=== PATIENT | female | born 1980 | race Hispanic/Latino ===

== ENCOUNTER 2016-05-12 11:46 | Emergency (ER) | payer OTHER ==
--- NOTE | 2016-05-12 16:23 | EDDOCDS ---
Physician Documentation [facility] Name: Eliz Stahl Age: 35 yrs Sex: Female : 1980 Arrival Date: 05/12/2016 Time: 11:46 Bed PR Private MD: Sarthak An R Disposition: 05/12/16 16:17 Discharged to Home/Self Care. Impression: Other ovarian cysts, Abdominal and pelvic pain. - Condition is Stable. - Discharge Instructions: Pelvic Pain, Female, Bnst-[id number], Ovarian Cyst, [id number]-[id number]. - Prescriptions for Macrobid 100 mg Oral Capsule - take 100 milligram by ORAL route every 12 hours for 10 days; 20 capsule. Diclofenac Sodium 75 mg Oral Tablet, Delayed Release (E.C.) - take 1 tablet by ORAL route 2 times per day; 30 tablet. - Medication Reconciliation, Local Pharmacy Hours form. - Follow up: Suzie Villeda, OB; When: Call to arrange an appointment; Reason: Further diagnostic work-up, Recheck today's complaints, Continuance of care. - Problem is new. - Symptoms are unchanged. Historical: - Allergies: no known allergies; - Home Meds: 1. Singulair 10 mg Oral tab 1 tab once daily 2. Zyrtec 10 mg Oral tab 1 tab once daily 3. Patanol 0.1 % Opht drop 1 drop 2 times per day 4. albuterol sulfate 90 mcg/actuation Inhl HFAA 2 puffs every 6 hours as needed - PMHx: Seasonal Allergies; - PSHx: Tonsillectomy (1999); - Social history: Smoking status: Patient states former smoker of tobacco. No barriers to communication noted, The patient speaks fluent Faroese, Speaks appropriately for age. - Family history: Not pertinent. - : The pt / caregiver states he / she is not on anticoagulants. Home medication list is obtained from the patient. - Exposure Risk Screening:: None identified. 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 5 in. (165.10 cm) (R); Pain 4/10; 16:15 BP 122 / 75; Pulse 100; Resp 16; Temp 97.1; Pulse Ox 100% ; Pain 4/10; cmb 11:49 Body Mass Index 22.46 (61.23 kg, 165.10 cm) gr2 MDM: 14:25 Urine Dip ordered. btw 14:25 UCG by Nursing ordered. btw 14:26 Urine Culture Ordered. EDMS 14:49 -US Pelvic Non-Ob Complete Ordered. EDMS 14:50 DUPLEX SCAN LIMITED (DOPPLER)+US Ordered. EDMS 14:51 Financial registration complete. lg 15:02 Transvaginal NON- US Ordered. EDMS 15:04 [facility] [place] was scanned into [employer] and attached to record. Point of Care Testing: Urine : 14:46 hCG Reading: Negative; Control Reading: Positive; ttb Urine Dip: 14:46 pH: 1.01; ; Specific [place]: 5; Ketones: Negative; Glucose: Negative; Protein: Trace; ttb Leukocytes: Positive (+); Nitrite: Negative ; Blood: Moderate (++); Bilirubin: Negative ; Urobilinogen: Normal Ranges: Signatures: Dispatcher [employer] Cary Paz RN Moon Torres mcp, Juan Alberto Reg lg Peyman Wright RN RN mlb1 Jackson Mosqueda PA PA btw Conner, Teresa RN RN ttb The chart was reviewed and I authenticate all verbal orders and agree with the evaluation and treatment provided.Attachments: 15:04 [facility] Payment Agreement lg MTDD
--- NOTE | 2016-05-12 16:23 | EDDOCDS ---
Nurse's Notes [facility] Name: Eliz Stahl Age: 35 yrs Sex: Female : 1980 Arrival Date: 05/12/2016 Time: 11:46 Bed PR Private MD: Sarthak An R Diagnosis: Other ovarian cysts;Abdominal and pelvic pain Presentation: 05/12 11:53 Presenting complaint: Patient states: Lower abdominal pain yesterday tenderness today mlb1 pain improved slight fever last night. Risk factors: the patient reports no vaginal bleeding. Adult Sepsis Screening: The patient does not have new or worsening altered mentation. Patient's respiratory rate is less than 22. Systolic blood pressure is greater than 100. Patient has a qSOFA score of 0- Negative Sepsis Screen. Suicide/Homicide risk assessment- the patient denies having any suicidal and/or homicidal ideations and does not present with any other emotional, behavioral or mental health complaints. Status: The patient is a dependent. Transition of care: patient was not received from another setting of care. 11:53 Acuity: MARICARMEN Level 3 mlb1 11:53 Method Of Arrival: Walkin/Carried/Asstd mlb1 Triage Assessment: 11:56 General: Appears in no apparent distress, Behavior is cooperative. Pain: Location: mlb1 right lower quadrant and left lower quadrant Pain currently is 0 out of 10 on a pain scale. At worst was 4 out of 10 on a pain scale. GI: Denies diarrhea, vomiting. 11:56 Pt Declines HIV testing. 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 Singulair 10 mg Oral tab 1 tab once daily 2. Zyrtec 10 mg Oral tab 1 tab once daily 3. Patanol 0.1 % Opht drop 1 drop 2 times per day 4. albuterol sulfate 90 mcg/actuation Inhl HFAA 2 puffs every 6 hours as needed - PMHx: Seasonal Allergies; - PSHx: Tonsillectomy (1999); - Social history: Smoking status: Patient states former smoker of tobacco. No barriers to communication noted, The patient speaks fluent Serbian, Speaks appropriately for age. - Family history: Not pertinent. - : The pt / caregiver states he / she is not on anticoagulants. Home medication list is obtained from the patient. - Exposure Risk Screening:: None identified. Screenin:47 Screening information is obtained from the patient. Fall risk: No risks identified. ttb Assistance ADL's: requires no assistance with activities of daily living. Abuse/DV Screen: The patient / caregiver reports he/she is: not in a situation that causes fear, pain or injury. Nutritional screening: No deficits noted. Advance Directives: Currently, there is no health care proxy. home support is adequate. Assessment: 14:47 General: Appears uncomfortable, well nourished, well groomed, Behavior is appropriate ttb for age, cooperative, pleasant. Pain: Location: lower abd. Neurological: Level of Consciousness is awake, alert. Cardiovascular: Chest pain is denied. Respiratory: No deficits noted. Airway is patent Denies cough, shortness of breath. GI: Abdomen is non- distended. : Denies burning with urination. Derm: Skin is normal. 16:22 General: Appears uncomfortable, Behavior is cooperative. Pain: Location: left lower mcp quadrant and right lower quadrant Pain currently is 4 out of 10 on a pain scale. Neurological: No deficits noted. Respiratory: Airway is patent Respiratory effort is even, unlabored. GI: Bowel sounds present X 4 quads. Abd is soft X 4 quads. Derm: Skin is pink, warm & dry. Vital Signs: 11:49 BP 116 / 70; Pulse 110; Resp 18 S; Temp 98.5(O); Pulse Ox 100% on R/A; Weight 61.23 kg gr2 (R); Height 5 ft. 5 in. (165.10 cm) (R); Pain 4/10; 16:15 BP 122 / 75; Pulse 100; Resp 16; Temp 97.1; Pulse Ox 100% ; Pain 4/10; cmb 11:49 Body Mass Index 22.46 (61.23 kg, 165.10 cm) gr2 Vitals: 11:49 Log In Time: May 12, 2016 at 11:49. gr2 ED Course: 11:47 Patient visited by Flaco Carver. gr2 11:47 Patient moved to Waiting gr2 11:49 Sarthak An is Private Physician. gr2 11:51 Patient visited by Flaco Carver. gr2 11:51 Patient moved to Pre RCE gr2 11:53 Patient visited by Peyman Wright RN. mlb1 11:54 Triage Initiated mlb1 11:57 Patient visited by Peyman Wright RN. mlb1 13:55 Patient moved to Triage 2 mcp 14:19 Jackson Mosqueda PA is PHCP. btw 14:19 Brianna Bernstein MD is Attending Physician. btw 14:19 Patient visited by Jackson Mosqueda PA. btw 14:33 Patient moved to TR1 mcp 14:34 Patient moved to Triage 2 mcp 14:47 Patient visited by Maggie Chin RN. ttb 14:47 The patient / caregiver is instructed regarding the plan of care and ED course. Patient ttb has correct armband on for positive identification. 14:47 Urine collected. Clean catch specimen. ttb 14:49 Patient visited by Maggie Chin RN. ttb 14:49 Patient moved to TR1 ttb 15:03 Patient name changed from Eliz\S\\S\Maribeth\S\ to Eliz\S\ \S\Maribeth. EDMS 15:03 Patient moved to Ultrasound hgl 15:04 [facility] Payment Agreement was scanned into [employer] and attached to record. lg 15:34 Patient moved to TR1 hgl 16:07 Patient moved to PR1 / 25 cmb 16:15 Patient visited by Emily Celeste. cmb 16:16 Suzie Villeda OB is Referral Physician. btw 16:22 No IV's were initiated during this patient's visit. No procedures done that require mcp assistance. Point of Care Testing: Urine : 14:46 hCG Reading: Negative; Control Reading: Positive; ttb Urine Dip: 14:46 pH: 1.01; ; Specific [place]: 5; Ketones: Negative; Glucose: Negative; Protein: Trace; ttb Leukocytes: Positive (+); Nitrite: Negative ; Blood: Moderate (++); Bilirubin: Negative ; Urobilinogen: Normal Ranges: Order Results: There are currently no results for this order. Outcome: 14:47 Ultrasound Study completed. ttb 16:17 Discharge ordered by Provider. btw 16:22 Discharge Assessment: patient administered narcotics - no. The following High Risk [facility] Discharge criteria are identified: None. Discharged to home ambulatory. Condition: stable. Discharge instructions given to patient, Instructed on discharge instructions, follow up and referral plans. medication usage, Demonstrated understanding of instructions, medications, Pt was receptive of discharge instructions/ teaching. Prescriptions given X 2. Property sent home with patient. 16:23 Patient left the ED. [facility] Signatures: Dispatcher [employer] EDMS Cary Lovett RN RN Moon May, Juan Alberto Reg lg Peyman Wright RN RN mlb1 Jackson Mosqueda PA PA btw Ly, Brice josephl Emily Celeste Teresa, RN RN ttb Flaco Carver gr2 MTDD
--- NOTE | 2016-05-12 16:59 | REP ---
PELVIC ULTRASOUND: Real-time sonographic evaluation of the pelvis performed utilizing transabdominal and endovaginal technique. The bladder measures 2.4 x 2.7 x 4.6 cm. The uterus measures 5.7 x 4.1 x 5.6 cm. Endometrial thickness is 7 mm. There is no endometrial fluid collection. The uterus is retroverted. The right ovary measures 4.2 x 1.7 x 2.9 cm and contains a dominant follicle 2.1 x 1.0 x 1.7 cm. The left ovary measures 2.9 x 1.6 x 3.4 cm with a paraovarian cystic structure 1.6 x 0.8 x 1.5 cm. There is no other evidence of adnexal mass. There is trace free fluid. There is no evidence of ovarian torsion, with blood flow seen in each ovary with duplex Doppler evaluation. IMPRESSION: Dominant follicle right ovary. Small cystic structure in a left paraovarian location. No torsion. Trace free fluid. Signed by Wicho Nickerson MD 05/13/2016 12:45 P
--- NOTE | 2016-05-14 17:24 | EDDOCDS ---
Physician Documentation [facility] Name: Eliz Stahl Age: 35 yrs Sex: Female : 1980 Arrival Date: 05/12/2016 Time: 11:46 Bed PR Private MD: Sarthak An R Disposition: 05/12/16 16:17 Discharged to Home/Self Care. Impression: Other ovarian cysts, Abdominal and pelvic pain. - Condition is Stable. - Discharge Instructions: Pelvic Pain, Female, Luzt-dk-[id number], Ovarian Cyst, [id number]-fp-[id number]. - Prescriptions for Macrobid 100 mg Oral Capsule - take 100 milligram by ORAL route every 12 hours for 10 days; 20 capsule. Diclofenac Sodium 75 mg Oral Tablet, Delayed Release (E.C.) - take 1 tablet by ORAL route 2 times per day; 30 tablet. - Medication Reconciliation, Local Pharmacy Hours form. - Follow up: Suzie Villeda, OB; When: Call to arrange an appointment; Reason: Further diagnostic work-up, Recheck today's complaints, Continuance of care. - Problem is new. - Symptoms are unchanged. Historical: - Allergies: no known allergies; - Home Meds: 1. Singulair 10 mg Oral tab 1 tab once daily 2. Zyrtec 10 mg Oral tab 1 tab once daily 3. Patanol 0.1 % Opht drop 1 drop 2 times per day 4. albuterol sulfate 90 mcg/actuation Inhl HFAA 2 puffs every 6 hours as needed - PMHx: Seasonal Allergies; - PSHx: Tonsillectomy (1999); - Social history: Smoking status: Patient states former smoker of tobacco. No barriers to communication noted, The patient speaks fluent Burmese, Speaks appropriately for age. - Family history: Not pertinent. - : The pt / caregiver states he / she is not on anticoagulants. Home medication list is obtained from the patient. - Exposure Risk Screening:: None identified. [employer]OR [employer]: 05/12 11:56 LMP 04/22/2016 mlb1 Vital Signs: 11:49 BP 116 / 70; Pulse 110; Resp 18 S; Temp 98.5(O); Pulse Ox 100% on R/A; Weight 61.23 kg gr2 / 134.99 lbs (R); Height 5 ft. 5 in. (165.10 cm) (R); Pain 4/10; 16:15 BP 122 / 75; Pulse 100; Resp 16; Temp 97.1; Pulse Ox 100% ; Pain 4/10; cmb 11:49 Body Mass Index 22.46 (61.23 kg, 165.10 cm) gr2 MDM: 14:25 Urine Dip ordered. btw 14:25 UCG by Nursing ordered. btw 14:26 Urine Culture Ordered. EDMS 14:49 -US Pelvic Non-Ob Complete Ordered. EDMS 14:50 DUPLEX SCAN LIMITED (DOPPLER)+US Ordered. EDMS 14:51 Financial registration complete. lg 15:02 Transvaginal NON- US Ordered. EDMS 15:04 [facility] [place] Payment Agreement was scanned into [employer] and attached to record. lg 05/13 10:02 T-Sheet-- Draft Copy was scanned into [employer] and attached to record. gb Point of Care Testing: Urine : 05/12 14:46 hCG Reading: Negative; Control Reading: Positive; ttb Urine Dip: 14:46 pH: 1.01; ; Specific [place]: 5; Ketones: Negative; Glucose: Negative; Protein: Trace; ttb Leukocytes: Positive (+); Nitrite: Negative ; Blood: Moderate (++); Bilirubin: Negative ; Urobilinogen: Normal Ranges: Signatures: Dispatcher [employer] Cary Paz RN Cass Carreno mcp, Reg Reg gb Moon Emmanuel, Reg Reg lg Peyman Wright RN RN mlb1 Jackson Mosqueda PA PA vladimirw Maggie Chin RN RN ttb The chart was reviewed and I authenticate all verbal orders and agree with the evaluation and treatment provided.Attachments: 15:04 [facility] Payment Agreement lg 05/13 10:02 T-Sheet-- Draft Copy gb Chart Complete MTDD
--- NOTE | 2016-05-14 17:24 | EDDOCDS ---
Nurse's Notes [facility] Name: Eliz Stahl Age: 35 yrs Sex: Female : 1980 Arrival Date: 05/12/2016 Time: 11:46 Bed PR Private MD: Sarthak An R Diagnosis: Other ovarian cysts;Abdominal and pelvic pain Presentation: 05/12 11:53 Presenting complaint: Patient states: Lower abdominal pain yesterday tenderness today mlb1 pain improved slight fever last night. Risk factors: the patient reports no vaginal bleeding. Adult Sepsis Screening: The patient does not have new or worsening altered mentation. Patient's respiratory rate is less than 22. Systolic blood pressure is greater than 100. Patient has a qSOFA score of 0- Negative Sepsis Screen. Suicide/Homicide risk assessment- the patient denies having any suicidal and/or homicidal ideations and does not present with any other emotional, behavioral or mental health complaints. Status: The patient is a dependent. Transition of care: patient was not received from another setting of care. 11:53 Acuity: MARICARMEN Level 3 mlb1 11:53 Method Of Arrival: Walkin/Carried/Asstd mlb1 Triage Assessment: 11:56 General: Appears in no apparent distress, Behavior is cooperative. Pain: Location: mlb1 right lower quadrant and left lower quadrant Pain currently is 0 out of 10 on a pain scale. At worst was 4 out of 10 on a pain scale. GI: Denies diarrhea, vomiting. 11:56 Pt Declines HIV testing. 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 Singulair 10 mg Oral tab 1 tab once daily 2. Zyrtec 10 mg Oral tab 1 tab once daily 3. Patanol 0.1 % Opht drop 1 drop 2 times per day 4. albuterol sulfate 90 mcg/actuation Inhl HFAA 2 puffs every 6 hours as needed - PMHx: Seasonal Allergies; - PSHx: Tonsillectomy (1999); - Social history: Smoking status: Patient states former smoker of tobacco. No barriers to communication noted, The patient speaks fluent South Korean, Speaks appropriately for age. - Family history: Not pertinent. - : The pt / caregiver states he / she is not on anticoagulants. Home medication list is obtained from the patient. - Exposure Risk Screening:: None identified. Screenin:47 Screening information is obtained from the patient. Fall risk: No risks identified. ttb Assistance ADL's: requires no assistance with activities of daily living. Abuse/DV Screen: The patient / caregiver reports he/she is: not in a situation that causes fear, pain or injury. Nutritional screening: No deficits noted. Advance Directives: Currently, there is no health care proxy. home support is adequate. Assessment: 14:47 General: Appears uncomfortable, well nourished, well groomed, Behavior is appropriate ttb for age, cooperative, pleasant. Pain: Location: lower abd. Neurological: Level of Consciousness is awake, alert. Cardiovascular: Chest pain is denied. Respiratory: No deficits noted. Airway is patent Denies cough, shortness of breath. GI: Abdomen is non- distended. : Denies burning with urination. Derm: Skin is normal. 16:22 General: Appears uncomfortable, Behavior is cooperative. Pain: Location: left lower mcp quadrant and right lower quadrant Pain currently is 4 out of 10 on a pain scale. Neurological: No deficits noted. Respiratory: Airway is patent Respiratory effort is even, unlabored. GI: Bowel sounds present X 4 quads. Abd is soft X 4 quads. Derm: Skin is pink, warm & dry. Vital Signs: 11:49 BP 116 / 70; Pulse 110; Resp 18 S; Temp 98.5(O); Pulse Ox 100% on R/A; Weight 61.23 kg gr2 (R); Height 5 ft. 5 in. (165.10 cm) (R); Pain 4/10; 16:15 BP 122 / 75; Pulse 100; Resp 16; Temp 97.1; Pulse Ox 100% ; Pain 4/10; cmb 11:49 Body Mass Index 22.46 (61.23 kg, 165.10 cm) gr2 Vitals: 11:49 Log In Time: May 12, 2016 at 11:49. gr2 ED Course: 11:47 Patient visited by Flaco Carver. gr2 11:47 Patient moved to Waiting gr2 11:49 Sarthak An is Private Physician. gr2 11:51 Patient visited by Flaco Carver. gr2 11:51 Patient moved to Pre RCE gr2 11:53 Patient visited by Peyman Wright RN. mlb1 11:54 Triage Initiated mlb1 11:57 Patient visited by Peyman Wright, RN. mlb1 13:55 Patient moved to Triage 2 mcp 14:19 Jackson Mosqueda PA is PHCP. btw 14:19 Brianna Bernstein MD is Attending Physician. btw 14:19 Patient visited by Jackson Mosqueda PA. btw 14:33 Patient moved to TR1 mcp 14:34 Patient moved to Triage 2 mcp 14:47 Patient visited by Maggie Chin RN. ttb 14:47 The patient / caregiver is instructed regarding the plan of care and ED course. Patient ttb has correct armband on for positive identification. 14:47 Urine collected. Clean catch specimen. ttb 14:49 Patient visited by Maggie Chin RN. ttb 14:49 Patient moved to TR1 ttb 15:03 Patient name changed from Eliz\S\\S\Maribeth\S\ to Eliz\S\ \S\Maribeth. EDMS 15:03 Patient moved to Ultrasound hgl 15:04 [facility] Payment Agreement was scanned into [employer] and attached to record. lg 15:34 Patient moved to TR1 hgl 16:07 Patient moved to PR1 / 25 cmb 16:15 Patient visited by Emily Celeste. cmb 16:16 Suzie Villeda OB is Referral Physician. btw 16:22 No IV's were initiated during this patient's visit. No procedures done that require [facility] assistance. 17:13 -US Pelvic Non-Ob Complete Returned. EDMS 17:13 DUPLEX SCAN LIMITED (DOPPLER)+US Returned. EDMS 17:13 Transvaginal NON- US Returned. EDMS 05/13 10:02 T-Sheet-- Draft Copy was scanned into [employer] and attached to record. Point of Care Testing: Urine : 05/12 14:46 hCG Reading: Negative; Control Reading: Positive; ttb Urine Dip: 14:46 pH: 1.01; ; Specific [place]: 5; Ketones: Negative; Glucose: Negative; Protein: Trace; ttb Leukocytes: Positive (+); Nitrite: Negative ; Blood: Moderate (++); Bilirubin: Negative ; Urobilinogen: Normal Ranges: Order Results: Lab Order: Urine Culture; SPEC'M 05/12/16 14:30 Test: URINE CULTURE; Value: <EXTERNAL COMMENT eCWMed> FULL REPORT IN LAB NOTES (eCW and Medent).; Status: F Test: URINE CULTURE; Value: URINE CULTURE RESULT NO GROWTH CLINICAL SIGNIFICANCE 1 ORGANISM; Status: F Radiology Order: -US Pelvic Non-Ob Complete Test: -US Pelvic Non-Ob Complete REASON FOR EXAMINATION: Adnexal Pain r/o Torsion; PELVIC ULTRASOUND:; ; Real-time sonographic evaluation of the pelvis performed utilizing transabdominal; and endovaginal technique. The bladder measures 2.4 x 2.7 x 4.6 cm. The uterus; measures 5.7 x 4.1 x 5.6 cm. Endometrial thickness is 7 mm. There is no; endometrial fluid collection. The uterus is retroverted. The right ovary measures; 4.2 x 1.7 x 2.9 cm and contains a dominant follicle 2.1 x 1.0 x 1.7 cm. The left; ovary measures 2.9 x 1.6 x 3.4 cm with a paraovarian cystic structure 1.6 x 0.8 x; 1.5 cm. There is no other evidence of adnexal mass. There is trace free fluid.; There is no evidence of ovarian torsion, with blood flow seen in each ovary with; duplex Doppler evaluation.; ; IMPRESSION:; ; Dominant follicle right ovary. Small cystic structure in a left paraovarian; location. No torsion. Trace free fluid.; ; ; Signed by; Wicho Nickerson MD 05/13/2016 12:45 P; Radiology Order: DUPLEX SCAN LIMITED (DOPPLER)+US Test: DUPLEX SCAN LIMITED (DOPPLER)+US REASON FOR EXAMINATION: Adnexal Pain r/o Torsion; PELVIC ULTRASOUND:; ; Real-time sonographic evaluation of the pelvis performed utilizing transabdominal; and endovaginal technique. The bladder measures 2.4 x 2.7 x 4.6 cm. The uterus; measures 5.7 x 4.1 x 5.6 cm. Endometrial thickness is 7 mm. There is no; endometrial fluid collection. The uterus is retroverted. The right ovary measures; 4.2 x 1.7 x 2.9 cm and contains a dominant follicle 2.1 x 1.0 x 1.7 cm. The left; ovary measures 2.9 x 1.6 x 3.4 cm with a paraovarian cystic structure 1.6 x 0.8 x; 1.5 cm. There is no other evidence of adnexal mass. There is trace free fluid.; There is no evidence of ovarian torsion, with blood flow seen in each ovary with; duplex Doppler evaluation.; ; IMPRESSION:; ; Dominant follicle right ovary. Small cystic structure in a left paraovarian; location. No torsion. Trace free fluid.; ; ; Signed by; Wicho Nickerson MD 05/13/2016 12:45 P; Radiology Order: Transvaginal NON- US Test: Transvaginal NON- US REASON FOR EXAMINATION: PELVIC PAIN; PELVIC ULTRASOUND:; ; Real-time sonographic evaluation of the pelvis performed utilizing transabdominal; and endovaginal technique. The bladder measures 2.4 x 2.7 x 4.6 cm. The uterus; measures 5.7 x 4.1 x 5.6 cm. Endometrial thickness is 7 mm. There is no; endometrial fluid collection. The uterus is retroverted. The right ovary measures; 4.2 x 1.7 x 2.9 cm and contains a dominant follicle 2.1 x 1.0 x 1.7 cm. The left; ovary measures 2.9 x 1.6 x 3.4 cm with a paraovarian cystic structure 1.6 x 0.8 x; 1.5 cm. There is no other evidence of adnexal mass. There is trace free fluid.; There is no evidence of ovarian torsion, with blood flow seen in each ovary with; duplex Doppler evaluation.; ; IMPRESSION:; ; Dominant follicle right ovary. Small cystic structure in a left paraovarian; location. No torsion. Trace free fluid.; ; ; Signed by; Wicho Nickerson MD 05/13/2016 12:45 P; Outcome: 14:47 Ultrasound Study completed. ttb 16:17 Discharge ordered by Provider. btw 16:22 Discharge Assessment: patient administered narcotics - no. The following High Risk mcp Discharge criteria are identified: None. Discharged to home ambulatory. Condition: stable. Discharge instructions given to patient, Instructed on discharge instructions, follow up and referral plans. medication usage, Demonstrated understanding of instructions, medications, Pt was receptive of discharge instructions/ teaching. Prescriptions given X 2. Property sent home with patient. 16:23 Patient left the ED. [facility] Signatures: Dispatcher [employer] Cary Paz, RN RN Cass Coombs, Reg Reg gb Moon Emmanuel, Reg Reg Peyman Cali RN RN mlb1 Jackson Mosqueda PA PA btw Ly, Brice hgl Emily Celeste Teresa, RN RN ttb Flaco Carver gr2 Chart Complete MTDD
--- NOTE | 2016-05-14 17:24 | EDDOCDS ---
Physician Documentation [facility] Name: Eliz Stahl Age: 35 yrs Sex: Female : 1980 Arrival Date: 05/12/2016 Time: 11:46 Bed PR Private MD: Sarthak An R Disposition: 05/12/16 16:17 Discharged to Home/Self Care. Impression: Other ovarian cysts, Abdominal and pelvic pain. - Condition is Stable. - Discharge Instructions: Pelvic Pain, Female, [id number], Ovarian Cyst, [id number]. - Prescriptions for Macrobid 100 mg Oral Capsule - take 100 milligram by ORAL route every 12 hours for 10 days; 20 capsule. Diclofenac Sodium 75 mg Oral Tablet, Delayed Release (E.C.) - take 1 tablet by ORAL route 2 times per day; 30 tablet. - Medication Reconciliation, Local Pharmacy Hours form. - Follow up: Suzie Villeda, OB; When: Call to arrange an appointment; Reason: Further diagnostic work-up, Recheck today's complaints, Continuance of care. - Problem is new. - Symptoms are unchanged. Historical: - Allergies: no known allergies; - Home Meds: 1. Singulair 10 mg Oral tab 1 tab once daily 2. Zyrtec 10 mg Oral tab 1 tab once daily 3. Patanol 0.1 % Opht drop 1 drop 2 times per day 4. albuterol sulfate 90 mcg/actuation Inhl HFAA 2 puffs every 6 hours as needed - PMHx: Seasonal Allergies; - PSHx: Tonsillectomy (1999); - Social history: Smoking status: Patient states former smoker of tobacco. No barriers to communication noted, The patient speaks fluent [place], Speaks appropriately for age. - Family history: Not pertinent. - : The pt / caregiver states he / she is not on anticoagulants. Home medication list is obtained from the patient. - Exposure Risk Screening:: None identified. 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 5 in. (165.10 cm) (R); Pain 4/10; 16:15 BP 122 / 75; Pulse 100; Resp 16; Temp 97.1; Pulse Ox 100% ; Pain 4/10; cmb 11:49 Body Mass Index 22.46 (61.23 kg, 165.10 cm) gr2 MDM: 14:25 Urine Dip ordered. btw 14:25 UCG by Nursing ordered. btw 14:26 Urine Culture Ordered. EDMS 14:49 -US Pelvic Non-Ob Complete Ordered. EDMS 14:50 DUPLEX SCAN LIMITED (DOPPLER)+US Ordered. EDMS 14:51 Financial registration complete. lg 15:02 Transvaginal NON- US Ordered. EDMS 15:04 [place] [place] was scanned into [employer] and attached to record. lg 05/13 10:02 T-Sheet-- Draft Copy was scanned into [employer] and attached to record. gb Point of Care Testing: Urine : 05/12 14:46 hCG Reading: Negative; Control Reading: Positive; ttb Urine Dip: 14:46 pH: 1.01; ; Specific [place]: 5; Ketones: Negative; Glucose: Negative; Protein: Trace; ttb Leukocytes: Positive (+); Nitrite: Negative ; Blood: Moderate (++); Bilirubin: Negative ; Urobilinogen: Normal Ranges: Signatures: Dispatcher [employer] Cary Paz RN Cass Carreno mcp, Reg Reg gb Moon Emmanuel, Reg Reg lg Peyman Wright RN RN mlb1 Jackson Mosqueda PA PA vladimirw Maggie Chin RN RN ttb The chart was reviewed and I authenticate all verbal orders and agree with the evaluation and treatment provided.Attachments: 15:04 [facility] Payment Agreement lg 05/13 10:02 T-Sheet-- Draft Copy gb Chart Complete MTDD
== END 2016-05-12 16:23 | disposition home or self-care (01) ==
LOC: M ED 11:46
DX: N30.90 Cystitis, unspecified without hematuria (principal); N83.202 Unspecified ovarian cyst, left side; J30.2 Other seasonal allergic rhinitis; Z79.899 Other long term (current) drug therapy; Z87.891 Personal history of nicotine dependence